=== PATIENT | female | born 1995 | race Caucasian/White ===

== ENCOUNTER → 2022-04-15 11:59 | Outpatient (CLI) | payer BC, SELFPAY ==
--- NOTE | ~2022-04-15 | US_ITS ---
US abdomen limited INDICATION: Abdomen pain PROCEDURE: Realtime right upper abdominal ultrasound. COMPARISON: Ultrasound dated 02/02/2019 FINDINGS: The pancreas is normal without focal mass or pancreatic ductal dilation. Liver echotexture is normal without focal mass or intrahepatic biliary dilatation. There is normal directional flow i n the portal vein. There are gallstones. Mild gallbladder wall thickening. No pericholecystic fluid. Common bile duct m easures 5 mm. No sonographic Campa's sign. IMPRESSION: 1: Cholelithiasis with mild gallbladder wall thickening. Reviewed, dictated and finalized at location A.
== END ==
PROVIDERS: PCP Family Medicine; Visit Provider Family Medicine
DX: R10.11 Right upper quadrant pain (principal); K80.20 Calculus of gallbladder without cholecystitis without obstruction
CPT/HCPCS: 76705

== ENCOUNTER 2022-05-07 22:07 | Emergency (ER) | payer BC, SELFPAY ==
--- NOTE | ~2022-05-07 | CT_ITS ---
EXAMINATION: CT abdomen pelvis w con DATE: 05/08/2022 01:49 INDICATION: Right upper quadrant pain. Nausea and vomiting. Gallstones. TECHNIQUE: Computed tomography (CT) of the abdomen and pelvis was performed with 100 cc Omnipaque 350 intravenous contrast. The dose-length product was 1169.04 mGy-cm. Automated exposure control and ite rative reconstruction technique were employed. COMPARISON: None. FINDINGS: Lung bases are unremarkable. No significant pleural or pericardial effusion. Heart size is normal. No significant vascular abnormality. No lymphadenopathy. Gallbladder wall appears mildly thic kened with possible trace pericholecystic fluid. Common duct is mildly dilated measuring 7 mm. The liver, spleen, pancreas, adrenal glands and kidneys are unremarkable. No free air or free fluid. Nonobstructive bowel gas pattern. Normal appendix. No abnormal pelvic masses or fluid collections. No acute osseous abnormality. No lytic or blastic lesions. IMPRESSION: 1. Mildly distended gallbladder with wall thickening and possible trace pericholecystic fluid. Mildly dilated common duct measuring 7 mm. Findings suspicious for cholecystitis, correlate clinically. Reviewed, dictated and finalized at location A. IMPRESSION: 1. Mildly distended gallbladder with wall thickening and possible trace pericho lecystic fluid. Mildly dilated common duct measuring 7 mm. Findings suspicious for cholecystitis, correlate clinically.
[2022-05-07 22:12] VITALS: BP 122/70; PULSE 59; RESP 16; TEMP 36.3; O2SAT 100
[2022-05-07 22:48] LABS: Appearance Urine Clear (Clear); Basophils Absolute Auto 0.1 K/mm3 (0.0-0.1); Basophils Percent Auto 0.6 % (0.2-1.2); Bilirubin Urine Negative (Negative); Blood Urine Trace-intact (Negative); Color Urine Yellow (Yellow); Eosinophils Absolute Auto 0.3 K/mm3 (0-0.3); Eosinophils Percent Auto 2.4 % (0-4.4); Glucose Urine UA Negative (Negative); Hematocrit 34.5 % (37.0-47.0); Hemoglobin 10.5 g/dL (12.0-15.0); Immature Granulocyte Absolute 0.04 K/mm3 (0.00-0.031); Immature Granulocyte Percent A 0.4 % (0-0.5); Ketones Urine Trace mg/dL (Negative); Leukocyte Esterase Ur Trace LEU/UL (Negative); Lymphocytes Absolute Auto 2.75 K/mm3 (0.9-3.2); Lymphocytes Percent Auto 24.7 % (18.3-44.2); Mean Corpuscular HGB Conc 30.4 g/dl (32-36); Mean Corpuscular Hemoglobin 20.8 pg (26-34); Mean Corpuscular Volume 68.2 fl (80-100); Mean Platelet Volume 11.5 fl (7.4-10.4); Monocytes Absolute Auto 0.6 K/mm3 (0.1-0.6); Monocytes Percent Auto 5.2 % (2.6-8.5); Neutrophils Absolute Auto 7.4 K/mm3 (1.3-6.7); Neutrophils Percent Auto 66.7 % (45.5-73.1); Nitrate Urine Negative (Negative); Platelet Count Result 249 k/mm3 (150-375); Protein Urine Negative (Negative); Red Blood Count 5.06 M/mm3 (4.2-5.4); Red Cell Distribution Width 15.8 % (11.5-14.5); Specific Grav Ur 1.025 (1.001-1.035); Urobilinogen Urine 0.2 mg/dL (<2.0); White Blood Count 11.1 K/mm3 (4.5-10.0); pH Urine 5.5 (5.0-9.0)
[2022-05-07 22:53] LABS: Add Urine Microscopic? YES; Bacteria Urine Trace /hpf; Mucus Urine Rare /lpf; RBC Urine 0-2 /hpf (0-2); Squamous Epithelial Cell Urine Moderate /hpf (Few)
[2022-05-07 22:57] LABS: Alanine Aminotransferase 32 U/L (6-35); Albumin Level 4.7 g/dL (3.5-5.1); Alkaline Phosphatase 96 U/L (38-126); Anion Gap 16 mmol/L (8-16); Aspartate Amino Transferase 27 U/L (14-36); Bilirubin,Total 0.3 mg/dL (0.2-1.3); Blood Urea Nitrogen 8 mg/dL (7-17); Calcium 9.3 mg/dL (8.4-10.2); Carbon Dioxide 24 mmol/L (22-30); Chloride 102 mmol/L (98-107); Estimated CRCL calculation 120 ml/min; Estimated Glomerular Filt Rate > 60; Glucose 116 mg/dL (65-110); Lipase 62 U/L (23-300); Potassium 3.4 mmol/L (3.4-5.0); Sodium 142 mmol/L (137-145)
[2022-05-07 23:07] LABS: Hypochromasia 3+ (NORMAL); Platelet Estimate Adequate (Adequate)
[2022-05-07 23:08] LABS: Microcytosis 2+ (NORMAL)
--- NOTE | 2022-05-07 23:35 | ED.ABDPAIN ---
HPI - Abdominal Pain General Chief Complaint: Abdominal Pain Stated Complaint: abd pain, Gall stones? Time Seen by Provider: 05/07/22 22:23 Source: patient Mode of arrival: ambulatory Limitations: no limitations History of Present Illness HPI narrative: This is a 26-year-old female that presents to the emergency department for right upper quadrant abdominal pain. Reports the pain is associated with nausea and vomiting. She was evaluated for similar pain a week ago and had an ultrasound that showed gallstones. She is scheduled to follow-up with the surgeon next week. Her pain returned tonight which prompted her to be seen again. Denies fevers. Related Data Allergies Allergy/AdvReac Type Severity Reaction Status Date / Time No Known Allergies Allergy Verified 05/07/22 22:14 Review of Systems Review of Systems: CONSTITUTIONAL: Denies fever GASTROINTESTINAL: Reports abdominal pain, nausea, vomiting GENITOURINARY: Denies dysuria All systems reviewed & are unremarkable except as noted in HPI and below PMFSH Past Medical History Medical History (Updated 05/08/22 @ 02:30 by China Dixon PA-C) No active medical problems Social History Social History (Updated 05/07/22 @ 23:38 by China Dixon PA-C) Smoking status: Never smoker Exam Narrative: GENERAL: Well-appearing, well-nourished, and in no acute distress. HEAD: Normocephalic, atraumatic. EYES: EOMI. CHEST: Clear to auscultation. No respiratory distress. No wheezes rales or rhonchi HEART: Regular rate and rhythm. No murmur heard. Normal peripheral pulses. ABDOMEN: Soft, nondistended, normal active bowel sounds. Mild tenderness to palpation in the right upper quadrant, without guarding EXTREMITIES: Normal range of motion. No edema. SKIN: Warm, dry, no rash. NEURO: No focal deficits. Alert and oriented x3. PSYCH: Normal mood and affect Course Vital Signs Vital signs: Vital Signs Temperature 97.3 F L 05/07/22 22:12 Pulse Rate 59 L 05/07/22 22:12 Respiratory Rate 16 05/07/22 22:12 Blood Pressure 122/70 05/07/22 22:12 Pulse Oximetry 100 05/07/22 22:12 Temperature 97.3 F L 05/07/22 22:12 Pulse Rate 59 L 05/07/22 22:12 Respiratory Rate 16 05/07/22 22:12 Blood Pressure 122/70 05/07/22 22:12 Pulse Oximetry 100 05/07/22 22:12 MDM - Abdominal Pain MDM Narrative Medical decision making narrative: Patient presents to the emergency department for right upper quadrant abdominal pain ongoing tonight. She is afebrile and nontoxic-appearing. Her vitals are stable. CBC with mild leukocytosis to 11.1. Also shows microcytic anemia with hemoglobin of 10.5. Metabolic panel and lipase without concerning findings. UA without evidence of infection. Bedside test is negative. CT scan of the abdomen and pelvis shows a mildly distended gallbladder with mild pericholecystic bladder wall thickening. Patient hydrated and given pain medication with relief. Patient offered admission for further management versus follow-up at her scheduled appointment with her surgeon. Patient wishes to be discharged to follow-up for her appointment this week. She was instructed she should remain on a low-fat diet. She will be started on oral antibiotics and given pain medication as needed. She was instructed to return to the ER at any time for further evaluation and management Lab Data Attestation: I reviewed the patient's lab results. Result diagrams: 05/07/22 22:41 05/07/22 22:41 Labs: Lab Results 05/07/22 05/07/22 05/07/22 Range/Units 22:41 22:41 22:41 WBC 11.1 H (4.5-10.0) K/mm3 RBC 5.06 (4.2-5.4) M/mm3 Hgb 10.5 L (12.0-15.0) g/dL Hct 34.5 L (37.0-47.0) % MCV 68.2 L (80-100) fl MCH 20.8 L (26-34) pg MCHC 30.4 L (32-36) g/dl RDW 15.8 H (11.5-14.5) % Plt Count 249 (150-375) k/mm3 MPV 11.5 H (7.4-10.4) fl Immature Gran % (Auto) 0.4 (0-0.5) % Neut % (
[2022-05-07] MEDS: SODIUM CHLORIDE 0.9% IV 1,000 ML 999 ML IV CONT (23:50)
[2022-05-07] MEDS: MORPHINE SULFATE (*CRX) 4 MG/ML INJ IV PUSH (23:50)
[2022-05-07] MEDS: PANTOPRAZOLE SODIUM IV 40 MG VIAL IV PUSH (23:50)
[2022-05-07] MEDS: ONDANSETRON INJ 4 MG/2 ML VIAL IV PUSH (23:50)
[2022-05-07 23:57] LABS: Schistocytes None Seen (NORMAL)
[2022-05-08] MEDS: KETOROLAC 15 MG/ML VIAL (*BKC) IV PUSH (01:01)
== END 2022-05-08 02:51 | disposition home or self-care (01) ==
PROVIDERS: Emergency Medicine; Emergency Provider Emergency Medicine; PCP Family Medicine
DX: K80.50 Calculus of bile duct without cholangitis or cholecystitis without obstruction (principal)
CPT/HCPCS: 36415; 74177; 80053; 81001; 81025; 83690; 85025; 87086; 87088; 96361; 96374; 96375; 99284; C9113; J1885; J2270; J2405; J7030; Q9967

== ENCOUNTER 2022-05-15 13:35 | Observation (INO) | payer BC, SELFPAY ==
--- NOTE | ~2022-05-15 | CT_ITS ---
EXAMINATION: CT abdomen pelvis w con DATE: 05/15/2022 15:33 INDICATION: Right upper quadrant pain TECHNIQUE: Computed tomography (CT) of the abdomen and pelvis was performed with 100 mL Omnipaque-350 intravenous contrast. Automated exposure control and iterative reconstruction technique were employe d. The dose-length product was 918.21 mGy-cm. COMPARISON: 05/08/2022. FINDINGS: Lower thorax: Unremarkable Liver: Enlarged. Biliary/Gallbladder: No stones. Mild gallbladder wall edema, possibly with trace pericholecystic flui d, slightly increased. Unchanged mild extrahepatic bile duct dilation. Pancreas: No mass or duct dilation. Spleen: Normal. Adrenals:No mass. Kidneys: No mass, stone, or hydronephrosis. GI tract: No small or large bowel dilation. Normal appendix. Mesentery/Peritoneum: No ascites, mass, or free air. Retroperitoneum: No mass. Pelvis: Pelvic organs are within normal limits. Soft Tissues: Soft tissues and body wall unremarkable. Bones: No acute osseous finding. IMPRESSION: Increased mild gallbladder wall edema/fluid with unchanged mild extrahepatic bile duct dilation. Thes e findings may represent cholecystitis in the appropriate clinical context. Reviewed, dictated and finalized at location K. [employer] IMPRESSION: Increased mild gallbladder wall edema/fluid with unchanged mild extrahepatic bi le duct dilation. These findings may represent cholecystitis in the appropriate clinical context.
[2022-05-15 13:52] VITALS: BP 103/59; PULSE 92; RESP 16; O2SAT 100
[2022-05-15 14:09] LABS: Appearance Urine Slightly Cloudy (Clear); Bilirubin Urine 2+ (Negative); Blood Urine Trace-lysed (Negative); Color Urine Yellow (Yellow); Glucose Urine UA Negative (Negative); Ketones Urine 3+ mg/dL (Negative); Leukocyte Esterase Ur Trace LEU/UL (Negative); Nitrate Urine Negative (Negative); Protein Urine Trace mg/dL (Negative); Specific Grav Ur >= 1.030 (1.001-1.035); Urobilinogen Urine 0.2 mg/dL (<2.0); pH Urine 5.5 (5.0-9.0)
[2022-05-15 14:15] LABS: Mucus Urine Heavy /lpf; Squamous Epithelial Cell Urine Occasional /hpf (Few); WBC Urine 0-3 /hpf
--- NOTE | 2022-05-15 14:17 | ED.ABDPAIN ---
HPI - Abdominal Pain General Chief Complaint: Abdominal Pain Stated Complaint: gb attack Time Seen by Provider: 05/15/22 14:16 Source: patient and family History of Present Illness HPI narrative: 26 years old white female presents with right upper quadrant pain started few days ago got worse last night. She came to our emergency room few days ago and was discharged on [place], Keflex and metronidazole, no improvement. She denies any fever, chills. She reports a lot of nausea and frequent vomiting. No history of abdominal surgery. History of systemic lupus. She does not smoke, she drinks almost daily. Marijuana occasionally. Patient is scheduled for cholecystectomy May 23, 2022 at [facility] Related Data Allergies Allergy/AdvReac Type Severity Reaction Status Date / Time No Known Allergies Allergy Unverified 05/04/18 09:21 Review of Systems Review of Systems: All systems reviewed & are unremarkable except as noted in HPI and below Exam Narrative: General appearance: Well-developed, well-nourished Skin: Normal color Head: Normocephalic, nontraumatic Eyes: Clear conjunctiva ENT: Oropharynx normal, ears normal, nose normal Neck: Supple, nontender Chest and respiratory: Airway patent, no respiratory distress, no accessory muscle use Heart: Regular rate/rhythm Abdomen: Soft, severe tenderness right upper quadrant positive Campa sign no organomegaly, quiet bowel sounds Vascular: Normal peripheral pulses, normal capillary refill. Musculoskeletal: Normal range of motion, nontender back Neurologic: Alert and oriented ?3, [employer] is normal as tested, no gross motor deficit Course Consultations Consultation #1: Dr. Gleason Admit to his service Date: 05/15/22 Time: 18:49 Vital Signs Vital signs: Vital Signs Pulse Rate 92 05/15/22 13:52 Respiratory Rate 16 05/15/22 13:52 Blood Pressure 103/59 L 05/15/22 13:52 Pulse Oximetry 100 05/15/22 13:52 Pulse Rate 92 05/15/22 13:52 Respiratory Rate 16 05/15/22 13:52 Blood Pressure 103/59 L 05/15/22 13:52 Pulse Oximetry 100 05/15/22 13:52 MDM - Abdominal Pain Differential Diagnosis Differential diagnosis: Likely abdominal pain, pancreatitis and other (Cholecystitis) Lab Data Result diagrams: 05/15/22 14:03 05/15/22 14:27 Labs: Lab Results 11/12/2905/15/22 05/15/22 Range/Units 13:58 14:03 14:27 WBC 12.5 H (4.5-10.0) K/mm3 RBC 5.43 H (4.2-5.4) M/mm3 Hgb 11.1 L (12.0-15.0) g/dL Hct 36.2 L (37.0-47.0) % MCV 66.7 L (80-100) fl MCH 20.4 L (26-34) pg MCHC 30.7 L (32-36) g/dl RDW 15.4 H (11.5-14.5) % Plt Count 278 (150-375) k/mm3 MPV 11.9 H (7.4-10.4) fl Immature Gran % (Auto) 0.2 (0-0.5) % Neut % (Auto) 83.2 H (45.5-73.1) % Lymph % (Auto) 10.8 L (18.3-44.2) % [place] % (Auto) 5.3 (2.6-8.5) % Eos % (Auto) 0.1 (0-4.4) % Baso % (Auto) 0.4 (0.2-1.2) % Lymph # (Auto) 1.35 (0.9-3.2) K/mm3 [place] # (Auto) 0.7 H (0.1-0.6) K/mm3 Eos # (Auto) 0.0 (0-0.3) K/mm3 Baso # (Auto) 0.1 (0.0-0.1) K/mm3 Abs Immat Gran (auto) 0.03 (0.00-0.031) K/mm3 Absolute Neuts (auto) 10.4 H (1.3-6.7) K/mm3 Absolute Nucleated RBC 0.0 (0.0-0.012) K/mm3 Nucleated RBC % 0.0 (0.0-0.2) % Platelet Estimate Adequate (Adequate) Microcytosis 2+ (NORMAL) Ovalocytes 1+ (NORMAL) Schistocytes None seen (NORMAL) Sodium 137 (137-145) mmol/L Potassium 3.7 (3.4-5.0) mmol/L Chloride 102 (98-107) mmol/L Carbon Dioxide 23 (22-30) mmol/L Anion Gap 12 (8-16) mmol/L BUN 7 (7-17) mg/dL Creatinine 0.50 L (0.7-1
[2022-05-15 14:19] LABS: Add Urine Microscopic? YES
[2022-05-15 14:21] LABS: Basophils Absolute Auto 0.1 K/mm3 (0.0-0.1); Basophils Percent Auto 0.4 % (0.2-1.2); Eosinophils Percent Auto 0.1 % (0-4.4); Hematocrit 36.2 % (37.0-47.0); Hemoglobin 11.1 g/dL (12.0-15.0); Immature Granulocyte Absolute 0.03 K/mm3 (0.00-0.031); Immature Granulocyte Percent A 0.2 % (0-0.5); Lymphocytes Absolute Auto 1.35 K/mm3 (0.9-3.2); Lymphocytes Percent Auto 10.8 % (18.3-44.2); Mean Corpuscular HGB Conc 30.7 g/dl (32-36); Mean Corpuscular Hemoglobin 20.4 pg (26-34); Mean Corpuscular Volume 66.7 fl (80-100); Mean Platelet Volume 11.9 fl (7.4-10.4); Monocytes Absolute Auto 0.7 K/mm3 (0.1-0.6); Monocytes Percent Auto 5.3 % (2.6-8.5); Neutrophils Absolute Auto 10.4 K/mm3 (1.3-6.7); Neutrophils Percent Auto 83.2 % (45.5-73.1); Platelet Count Result 278 k/mm3 (150-375); Red Blood Count 5.43 M/mm3 (4.2-5.4); Red Cell Distribution Width 15.4 % (11.5-14.5); White Blood Count 12.5 K/mm3 (4.5-10.0)
[2022-05-15] MEDS: SODIUM CHLORIDE 0.9% IV 1,000 ML 999 ML IV CONT (14:27)
[2022-05-15] MEDS: HYDROmorphone HCL INJ (*CRX) 1 MG/ML SYR 0.5 MG IV PUSH ×2 (14:27→20:59)
[2022-05-15] MEDS: ONDANSETRON INJ 4 MG/2 ML VIAL IV PUSH (14:27)
[2022-05-15 14:33] LABS: Microcytosis 2+ (NORMAL); Ovalocytes 1+ (NORMAL); Platelet Estimate Adequate (Adequate)
[2022-05-15 14:34] LABS: Schistocytes None Seen (NORMAL)
[2022-05-15 14:43] LABS: Alanine Aminotransferase 33 U/L (6-35); Albumin Level 4.8 g/dL (3.5-5.1); Alkaline Phosphatase 83 U/L (38-126); Anion Gap 12 mmol/L (8-16); Aspartate Amino Transferase 22 U/L (14-36); Bilirubin,Total 0.6 mg/dL (0.2-1.3); Blood Urea Nitrogen 7 mg/dL (7-17); Calcium 9.3 mg/dL (8.4-10.2); Carbon Dioxide 23 mmol/L (22-30); Chloride 102 mmol/L (98-107); Estimated CRCL calculation 143 ml/min; Estimated Glomerular Filt Rate > 60; Glucose 112 mg/dL (65-110); Lipase 31 U/L (23-300); Potassium 3.7 mmol/L (3.4-5.0); Sodium 137 mmol/L (137-145)
[2022-05-15] MEDS: MORPHINE SULFATE (*CRX) 4 MG/ML INJ IV PUSH (19:05)
[2022-05-15 19:08] VITALS: BP 111/62; PULSE 91; RESP 18; O2SAT 100
[2022-05-15 20:17] LABS: SARS-CoV-2 RNA PCR Negative
[2022-05-15 20:34] VITALS: BMI 38.4
--- NOTE | 2022-05-15 20:34 | ADMGEN ---
This patient, Eve Coyle, was admitted to [facility] Surg Room 313-01. Patient/family oriented to hospital policies and general routines including ID bracelet, bed and alarms, visiting hours, pain management, procedures, bathroom and other care routines, personal items, smoking policy, room service/diet, and visiting hours. Information on how to activate the Rapid Response Team has been discussed. Patient/Family are encouraged to report perceived risks to care and to ask questions if they do not understand what they are told or what they should do.
[2022-05-15] MEDS: LACTATED RINGERS 1,000 ML 100 ML IV CONT (20:58)
[2022-05-15 21:50] VITALS: BP 136/76; PULSE 88; RESP 18; TEMP 36.8; O2SAT 100
[2022-05-15] MEDS: IBUPROFEN IV 800 MG/200 ML 800 MG/200 ML BAG 400 MG IVPB (22:58)
[2022-05-16] MEDS: IBUPROFEN IV 800 MG/200 ML 800 MG/200 ML BAG 400 MG IVPB (04:13)
[2022-05-16] MEDS: LACTATED RINGERS 1,000 ML 100 ML IV CONT (05:46)
[2022-05-16 06:00] VITALS: BP 128/64; PULSE 67; RESP 18; TEMP 36.2; O2SAT 100
[2022-05-16 06:29] LABS: Basophils Absolute Auto 0.1 K/mm3 (0.0-0.1); Basophils Percent Auto 0.5 % (0.2-1.2); Eosinophils Absolute Auto 0.2 K/mm3 (0-0.3); Eosinophils Percent Auto 1.9 % (0-4.4); Hematocrit 31.6 % (37.0-47.0); Hemoglobin 9.5 g/dL (12.0-15.0); Immature Granulocyte Absolute 0.03 K/mm3 (0.00-0.031); Immature Granulocyte Percent A 0.3 % (0-0.5); Lymphocytes Absolute Auto 2.02 K/mm3 (0.9-3.2); Lymphocytes Percent Auto 19.2 % (18.3-44.2); Mean Corpuscular HGB Conc 30.1 g/dl (32-36); Mean Corpuscular Hemoglobin 20.9 pg (26-34); Mean Corpuscular Volume 69.6 fl (80-100); Monocytes Absolute Auto 0.9 K/mm3 (0.1-0.6); Monocytes Percent Auto 8.8 % (2.6-8.5); Neutrophils Absolute Auto 7.3 K/mm3 (1.3-6.7); Neutrophils Percent Auto 69.3 % (45.5-73.1); Platelet Count Result 224 k/mm3 (150-375); Red Blood Count 4.54 M/mm3 (4.2-5.4); Red Cell Distribution Width 15.4 % (11.5-14.5); White Blood Count 10.5 K/mm3 (4.5-10.0)
[2022-05-16 06:40] LABS: Alanine Aminotransferase 26 U/L (6-35); Alkaline Phosphatase 71 U/L (38-126); Anion Gap 11 mmol/L (8-16); Aspartate Amino Transferase 20 U/L (14-36); Bilirubin,Total 0.8 mg/dL (0.2-1.3); Blood Urea Nitrogen 6 mg/dL (7-17); Calcium 8.5 mg/dL (8.4-10.2); Carbon Dioxide 22 mmol/L (22-30); Chloride 105 mmol/L (98-107); Estimated CRCL calculation 145 ml/min; Estimated Glomerular Filt Rate > 60; Glucose 96 mg/dL (65-110); Potassium 3.4 mmol/L (3.4-5.0); Sodium 138 mmol/L (137-145)
[2022-05-16 07:13] LABS: Platelet Estimate Adequate (Adequate)
[2022-05-16 07:14] LABS: Anisocytosis 1+ (NORMAL); Microcytosis 1+ (NORMAL)
--- NOTE | 2022-05-16 10:12 | PM.SD2 ---
Same Day Admit/Disch: HPI History of Present Illness Chief complaint: cholecystitis Narrative: Eve Coyle is a 26 year old woman who presented to the ER yesterday with complaints of RUQ abdominal pain. She had a similar episode of RUQ abdominal pain a few weeks prior and had an abdominal ultrasound that showed gallstones. She was referred to a surgeon, which she has actually since been set up to have an outpatient cholecystectomy in about a week. She had a severe episode of abdominal pain on 05/07/22 that brought her into our ER for evaluation. Labs showed mild leukocytosis and her CT showed evidence of mild gallbladder distention with mild pericholecystic inflammatory change. She was offered admission at that time, but chose to discharge home and follow-up with the surgeon. Her abdominal pain again got worse yesterday and prompted her to come back into the ER for evaluation. Labs showed a WBC count of 12,500, LFTs normal and lipase normal. CT scan abdomen and pelvis in the ER showed increased mild gallbladder wall edema/fluid with unchanged mild extrahepatic bile duct dilation. She was placed in observation for further evaluation of cholecystitis with cholelithiasis. She is now seen this morning. Her RUQ abdominal pain has significantly improved. She is not having any nausea or vomiting. She is afebrile. Labs today showed her WBC count down to 10,500. LFTs are still normal. [facility] Past Medical History Medical History No pertinent past medical history Surgical History Surgical History No pertinent past surgical history Family History Family History Grandparent Diabetes mellitus Social History Social History Smoking status: Never smoker Alcohol intake: current Drinks per week: 2 Substance use type: does not use Has the Lack of Transportation Kept You From Medical Appointments or From Getting Medications?: No Within the Past 12 Months, Were You Worried Whether Your Food Would Run Out Before You Got Money to Buy More?: Never True What is Your Housing Situation Today?: I Have Housing Are You Worried That in the Next 2 Months, You May Not Have Your Own Housing to Live In?: No Do You Have Trouble Paying Your Heating Or Electricity Bill?: No Do You Have Trouble Paying For Medicines?: No Are You Currently Unemployed and Looking for Work?: No Highest Level of Education Completed: Bachelor's Degree Do You Have Trouble With Childcare or the Care of a Family Member?: No Spiritual care concerns: No Same Day Admit/Disch: Med Pre-admit Medications Home Medications Medication Instructions Recorded Confirmed Type alprazolam 0.25 mg tablet (Xanax) 0.25 mg PO DAILY PRN Anxiety 05/15/22 05/15/22 History hydroxychloroquine 400 mg tablet 500 mg PO BID 05/15/22 05/15/22 History levonorgestrel-ethinyl estradiol 1 tablet PO DAILY 05/15/22 05/15/22 History 0.1 mg-20 mcg tablet (Sronyx) sertraline 50 mg tablet (Zoloft) 50 mg PO DAILY 05/15/22 05/15/22 History Exam Const: General: comfortable, no acute distress and awake Nutritional Appearance: obese Orientation/consciousness: patient oriented x3 HENMT: Head: normocephalic and atraumatic Ears: hearing grossly normal bilaterally Mouth: Yes moist mucous membranes Eyes: General: appearance normal, both eyes and all related structures Sclera: sclerae normal Pupils: Equal, round and reactive pupils present EOM: EOMs intact bilaterally Neck: Neck: normal visual inspection and full ROM Resp: Effort & Inspection: no respiratory distress Auscultation: clear to auscultation bilaterally Cardio: Rate: regular rate Rhythm: regular rhythm Heart sounds: S1 normal heart sound present and S2 normal heart sound present GI: Inspection: non-distended, obesit
[2022-05-16 12:21] LABS: Schistocytes None Seen (NORMAL)
== END 2022-05-16 10:31 | disposition home or self-care (01) ==
LOC: ANHED 18:54 → ANH3MEDSUR 20:21
PROVIDERS: Emergency Medicine; Admitting Provider Surgery; Emergency Provider Emergency Medicine; PCP Family Medicine; Visit Provider Surgery
DX: K80.10 Calculus of gallbladder with chronic cholecystitis without obstruction (principal); E66.9 Obesity, unspecified; Z68.38 Body mass index [BMI] 38.0-38.9, adult; R10.11 Right upper quadrant pain; M32.9 Systemic lupus erythematosus, unspecified; F10.90 Alcohol use, unspecified, uncomplicated; F12.90 Cannabis use, unspecified, uncomplicated; Z20.822 Contact with and (suspected) exposure to COVID-19; Z79.899 Other long term (current) drug therapy
CPT/HCPCS: 36415; 74177; 80053; 81001; 81025; 83690; 85025; 96361; 96365; 96366; 96367; 96375; 96376; 99285; G0378; J1170; J1741; J2270; J2405; J2543; J7030; J7120; Q9967; U0003; U0005

== ENCOUNTER 2022-05-18 01:05 | Day surgery (SDC) | payer BC, SELFPAY ==
[2022-05-16 14:19] VITALS: BMI 37.5
--- NOTE | 2022-05-16 14:23 | PC.NURSE ---
Report to the Outpatient Waiting Room, entrance under the green pavilion located off [facility], at time 1030 on date 05/18/22. Planned Procedure Time: 1230. Time changes happen often and if your time is changed the preop area will call you the afternoon before. - You and your visitor will be asked to self-screen and do not enter if you have any COVID symptoms. - We encourage only one visitor and NO visitors under age 16 are allowed at this time. Your visitor will receive communication by the phone number that is given day of service. - The patient visitor is requested to social distance or may leave the building when not with patient due to restrictions. - A mask is OPTIONAL within the hospital. Patients may have clear liquids (water, carbonated beverages, clear teas, apple juice) until 3 hours prior to surgery with a maximum of 20 ounces. - No food from midnight until time of surgery Take the following medications with a SIP of water the morning of surgery: XANAX IF NEEDED, ZOLOFT Medications to discontinue per physician: N/A Date to take last dose: N/A Please no make-up, nail chinese, hairspray, perfume, deodorant, or body powder the day of surgery. No jewelry (including any body piercings) or valuables the day of surgery, leave them at home. Please take a shower or bath the night before, or the morning of, surgery with an antibacterial soap (HIBICLENS). Wear comfortable, loose fitting clothing. - Jewelry must be removed prior to entering the operating room. Rings and piercings that are not removed may be cut off. - The hospital will not accept responsibility for valuables. - Please leave all valuables, including medications, at home the day of surgery. If you are going home after surgery, a licensed tractor sweeper driver must drive you home. - NO public transportation without another adult. - We recommend that an adult stay with you for 24 hours following discharge. - We also recommend that you do not drive, make important decision, drink alcoholic beverages, or take any drugs that were not prescribed by your health care provider for at least 24 hours after your discharge time. Follow any additional instructions given to you from your surgeon. If you or anyone in your household have experienced Covid symptoms in the past week, please notify your surgeon or the nurse liaison at the phone number below for possible testing. Telephone instructions given to PT - GUNNER MARTINS and asked if any additional questions and then verbalized understanding. Patient advised to call surgeon office or pre surgery nurse liaison [phone] if any additional questions.
[2022-05-18] VITALS (11 sets, daily range): BP systolic 116–138; BP diastolic 63–76; PULSE 75–89; RESP 16–22; TEMP 36.3–36.8; O2SAT 96–100
[2022-05-18] MEDS: LACTATED RINGERS 1,000 ML 30 ML IV CONT ×2 (11:08→14:22)
[2022-05-18] MEDS: ACETAMINOPHEN 500 MG TABLET 1000 MG PO (11:09)
[2022-05-18] MEDS: KETOROLAC 15 MG/ML VIAL (*BKC) IV PUSH (11:11)
--- NOTE | 2022-05-18 11:13 | WPDHPUPDATE1 ---
History and Physical Update Update Date/Time: 05/18/22 11:13 History and Physical has been reviewed, including an updated exam of the patient. There are NO changes in the patient's condition. Risks, benefits, and alternatives have been discussed and questions answered. Patient agrees to proceed with procedure.
[2022-05-18 11:23] LABS: Alanine Aminotransferase 22 U/L (6-35); Albumin Level 4.5 g/dL (3.5-5.1); Alkaline Phosphatase 78 U/L (38-126); Amylase 46 U/L (30-110); Aspartate Amino Transferase 21 U/L (14-36); Bilirubin,Total 0.4 mg/dL (0.2-1.3); Lipase 27 U/L (23-300)
--- NOTE | 2022-05-18 11:47 | WPDANESEPPF ---
Anes - Initial Pre Proc Eval Procedure: Operation Date: 05/18/22 12:30 Proposed Procedures p Laparoscopic Cholecystectomy - Jasper Gleason MD Date/Time: 05/18/22 11:47 Surgeon: Jasper Gleason MD Pre Op Diagnosis: Chronic Calculous Cholecystitis Patient Data Age: 26 Gender: F Height: 1.55 m Weight: 92.2 kg Last Vital Signs Temp 36.8 C 05/18/22 11:16 Pulse 85 05/18/22 11:16 Resp 16 05/18/22 11:16 BP 130/76 05/18/22 11:16 Pulse Ox 100 05/18/22 11:16 O2 Del Method Room Air 05/18/22 11:16 Allergies Allergy/AdvReac Type Severity Reaction Status Date / Time shrimp Allergy Swelling Verified 05/18/22 10:29 of Lip/Tongue/Throat cephalexin AdvReac Rash Verified 05/18/22 10:29 Home Medications Medication Instructions Recorded Confirmed Type hydrocodone 5 mg-acetaminophen 325 1 tablet PO Q6H PRN pain #20 tabs 05/08/22 05/18/22 Rx mg tablet alprazolam 0.25 mg tablet (Xanax) 0.25 mg PO DAILY PRN Anxiety 05/15/22 05/18/22 History hydroxychloroquine 400 mg tablet 500 mg PO BID 05/15/22 05/18/22 History levonorgestrel-ethinyl estradiol 1 tablet PO DAILY 05/15/22 05/18/22 History 0.1 mg-20 mcg tablet (Sronyx) sertraline 50 mg tablet (Zoloft) 50 mg PO DAILY 05/15/22 05/18/22 History Laboratory Tests 05/18/22 10:56 Total Bilirubin 0.4 mg/dL mg/dL (0.2-1.3) Direct Bilirubin 0.0 mg/dL mg/dL (0-0.3) AST 21 U/L U/L (14-36) ALT 22 U/L U/L (6-35) Alkaline Phosphatase 78 U/L U/L (38-126) Total Protein 8.0 g/dL g/dL (6.3-8.2) Albumin 4.5 g/dL g/dL (3.5-5.1) Amylase 46 U/L U/L (30-110) Lipase 27 U/L U/L (23-300) Patient hx anesthesia problems: none Family hx anesthesia problems: none Results Review: All pre-operative results and documents have been reviewed as part of the pre-operative evaluation. [facility] Past Medical History Medical History Rheumatoid arthritis SLE (systemic lupus erythematosus) Surgical History Surgical History No pertinent past surgical history Family History Family History Grandparent Diabetes mellitus Social History Social History Smoking status: Never smoker Alcohol intake: current Drinks per week: 4 Substance use: never Substance use type: does not use Lack of Transportation: No Lack of Food: Never True Current Housing: I Have Housing Concerned About Future Housing: No Difficulty Paying Gas/Electric Bills: No Difficulty Paying for Meds: No Currently Unemployed: No Education: Bachelor's Degree Difficulty w/ Childcare or Family Care: No Living arrangements: with family Spiritual care concerns: No Anes - Eval Final PreProcedure Day of Procedure 05/18/22 11:47 Patient weight: obese Heart: regular rate and rhythm Lungs: clear to auscultation Airway: Mallampati scale class II Neurological: alert and oriented Last oral intake: >/= 8 hours ASA classification: III Emergent: no Anesthetic plan: proceed Anesthesia type and monitoring: general ETT and standard monitoring Results Review: All pre-operative results and documents have been reviewed as part of the pre-operative evaluation. Informed Consent: The patient's anesthetic plan and its attendant risks and benefits were discussed with the patient/family/POA. Questions were solicited and answers provided to the satisfaction of the patient/family/POA.
[2022-05-18] MEDS: CLINDAMYCIN 900 MG/D5W 50 ML 900 MG/50 ML PIGGYBACK 50 MG IVPB (12:35)
[2022-05-18] MEDS: BUPIVACAINE/EPINEPHRINE 0.25% 50 ML VIAL INFILTRATE (13:04)
--- NOTE | 2022-05-18 14:27 | W.PM.PROC2 ---
Procedure Note - Detailed Date of Procedure 05/18/22 Pre-op Diagnosis Chronic Calculous Cholecystitis Post-op Diagnosis Other (Acute on chronic cholecystitis, cholelithiasis) Procedure Performed Laparoscopic cholecystectomy Surgeon Jasper Gleason MD Bioanalyst Leann PIERCE, Bella Sanchez DOPSTER Anesthesia General and Local (0.25% Marcaine with epinephrine) Indications Patient has had numerous bouts of postprandial right upper quadrant abdominal pain. Ultrasound showed gallstones and gallbladder wall thickening. She has been in the emergency room a couple of different times with this. She is taken to surgery now for laparoscopic cholecystectomy Findings Patient had hepatic steatosis. Her gallbladder was very distended and acutely inflamed with also chronic inflammation. The wall was thickened there was edema. It was partially intrahepatic. The surgery was very difficult due to the severity of the inflammation and also the fatty liver. There was much more bleeding than is typical. The bleeding was at least 5 times more than is usually seen. There was no biliary ductal dilatation. Description of Procedure Patient was taken to surgery and induced into general anesthesia. The abdomen was prepped and draped. Trocars were placed in usual fashion using applied Medical optical trocars and local anesthetic. Once the trocars were in position, it was immediately obvious at the gallbladder was distended thickened and had acute inflammation. A laparoscopic aspirator was used in the gallbladder was decompressed. The wall the gallbladder was too thick to try and close the cholecystotomy. We then attempted to retract the gallbladder anterosuperiorly. This was difficult as it is wall was so thick. Some adhesions to the liver were taken down. More adhesions to the gallbladder of omentum were taken down. Eventually the gallbladder was able to be retracted. Additional adhesions were taken down and the infundibulum was exposed. There appeared to be a large stone in this area. The infundibulum was grasped and retracted. Then adhesions and inflammation were carefully dissected from the cystic duct and cystic artery. This was bloody. A 5th port was placed in the left mid abdomen which was a 5 mm port. From this a laparoscopic Kittner was used to try and retract some of the medial segment of the left lobe of the liver from the gallbladder and triangle of Calot. This was minimally effective. The liver was fatty and tended to bleed even with this gentle retraction. Some additional adhesions on the most lateral aspect of the right lobe of the liver were taken down and this seemed to give us a bit more ability to retract the gallbladder. Careful dissection was done and suctioning of blood was performed. Eventually the cystic duct and cystic artery were able to be dissected clearly. The gallbladder was dissected off the liver at its lower 3rd. Critical view was achieved. I securely clipped and divided the cystic duct and cystic artery. The gallbladder was still very large, thickened and difficult to dissect. It was retracted off the liver but the tissue planes between the gallbladder and the liver were obscured due to the inflammation. We used a combination of cautery, blunt dissection and some sharp dissection. There was considerable amount of bleeding from the liver surface. This was controlled with cautery. As we reached the upper 3rd of the gallbladder it was over 50% intrahepatic. In trying to dissect the gallbladder off the liver, I entered the gallbladder. I then changed the plane of dissection which actually was into the liver but did allow me to dissect all of the gallbladder wall free of the liver. Some cautery was used but initially there was very little bleeding from the liver surface. The gallbladder was placed in an Endo-Catch bag. It was retrieved through the 10 11 epigastric trocar site. To extricate the gallbladder, I had to enlarg
[2022-05-18] MEDS: SCOPOLAMINE 1.5 MG PATCH TRANSDERM (14:31)
[2022-05-18] MEDS: fentaNYL CITRATE INJ (*CRX) 100 MCG/2 ML VIAL 25 MCG IV PUSH ×4 (15:12→15:34)
[2022-05-18] MEDS: oxyCODONE HCL (*CRX) 5 MG TAB IR PO (16:26)
== END 2022-05-18 17:07 | disposition home or self-care (01) ==
PROVIDERS: PCP Family Medicine; Visit Provider Surgery
PROC: 0FT44ZZ Resection of Gallbladder, Percutaneous Endoscopic Approach (ICD-10-PCS; CPT 47562; principal; 2022-05-18 12:30)
DX: K80.10 Calculus of gallbladder with chronic cholecystitis without obstruction (principal); K76.0 Fatty (change of) liver, not elsewhere classified; M06.9 Rheumatoid arthritis, unspecified; M32.9 Systemic lupus erythematosus, unspecified; E66.9 Obesity, unspecified; Z68.38 Body mass index [BMI] 38.0-38.9, adult
CPT/HCPCS: 47562; 36415; 80076; 82150; 83690; 86850; 86900; 86901; 88304; A9270; C1713; J1100; J1170; J1885; J2250; J2405; J2704; J2710; J3010; J7120